=== PATIENT | female | born 1945 | race Hispanic/Latino ===

== ENCOUNTER → 2024-03-28 | Outpatient (CLI) | payer MEDICARE ==
[2024-03-28] MEDS: REGADENOSON 0.4 MG/5 ML PF SYG IVP ONE (11:37)
--- NOTE | 2024-04-02 13:48 | HMCSR ---
APPROVED REPORT Height: 5 ft 0in Weight: 164 lbs TEST INDICATIONS UNSTABLE ANGINA The imaging protocol used to acquire images was Rest Tc-99m/stress Tc-99m 1 day Consent: The procedure was explained and understood by the patient. Informerd consent was witnessed Mike WARNER RN First, low dose rest was performed then high dose stress. RESTING DATA: The resting ekg shows: NSR Rest SPECT myocardial perfusion imaging was performed in supine position 83 minutes following the int ravenous injection of 11.0 mCi of Tc-99 Sestamibi. Time of rest injection: 09:30: Date: 03/28/2024 Time of rest imagin:53: Date: 03/28/2024 PHARMACOLOGIC STRESS: Pharmacologic stress test was performed by injecting regadenoson 0.4 mg IV push followed by the intra venous injection of 30.0 mCi of Tc-99 Sestamibi. Time of stress injection: 11:30: Date: 03/28/2024 Time of stress imagin:52: Date: 03/28/2024 Heart Rate at time of stress injection: 74 bpm. Gated Stress SPECT was performed 82 minutes after stress injection. The images were gated to evaluate regional wall motion and calculate left ventricular ejection fracti on. STRESS DETAILS Reason for Termination: Infusion complete Stress Symptoms: Dyspnea Max HR Achieved: 83 bpm % of APMHR Achieved: 59 Max Blood Pressure: 183/83 mmHg Stress ECG: NSR Study quality was good. Lung uptake was Normal. Artifact: breast and diaphragmatic artifact LEFT VENTRICLE Size: The left ventricular size is normal. Systolic Function:The left ventricular systolic function is normal. Wall Motion: No regional wall motion abnormalities noted. The left ventricular ejection fraction was calculated to be 72%.TID = . LV PERFUSION The rest and stress images show normal perfusion. IMPRESSION Normal pharmacologic nuclear stress test. Global LV Function: Normal Stress ECG Summary: Normal LV Perfusion Summary: Normal Conclusion Normal pharmacologic nuclear stress test. Global LV Function: Normal Stress ECG Summary: Normal LV Perfusion Summary: Normal
== END | disposition home or self-care (01) ==
LOC: SHCH 09:01
PROVIDERS: ATTEND Internal Medicine Cardiovascular Disease
DX: I20.0 Unstable angina (principal); R42 Dizziness and giddiness
CPT/HCPCS: 78452; 93017; J2785; A9500 ×2

== ENCOUNTER → 2024-06-21 | Outpatient (CLI) | payer MEDICARE | END | disposition home or self-care (01) | LOC: SHCH 14:39 | PROVIDERS: ATTEND Internal Medicine Cardiovascular Disease | DX: I08.0 Rheumatic disorders of both mitral and aortic valves (principal); I20.0 Unstable angina; R42 Dizziness and giddiness | CPT/HCPCS: 93306 ==